=== PATIENT | female | born 1945 | race Caucasian/White ===

== ENCOUNTER 2020-03-01 08:01 | Day surgery (SDC) | payer MEDICARE, OTHER ==
[~2020-03-01] VITALS: Ht 175.3 cm; Wt 64.7 kg
[2020-03-01] VITALS (12 sets, daily range): BP systolic 124–164; BP diastolic 57–104
--- NOTE | 2020-03-01 08:20 | NUR ---
Pt ambulated independently on to unit & oriented to room, including fall prevention policy & call light use.
[2020-03-01] MEDS ORDERED: diphenhydrAMINE 25mg capsule PO PRN (08:30)
[2020-03-01] MEDS ORDERED: LORazepam 0.5 MG tablet PO PRN (08:30)
[2020-03-01] MEDS ORDERED: normal saline 1,000 ML IV SCH (08:30)
[2020-03-01] MEDS ORDERED: nitroGLYCERIN 0.4mg SUBLingual tab SL PRN (08:30)
[2020-03-01] MEDS ORDERED: ASPI-1265 PO (08:49)
[2020-03-01] MEDS ORDERED: FLUO40CA10 PO (08:49)
[2020-03-01] MEDS ORDERED: FLUT1BLS10 INH (08:49)
[2020-03-01] MEDS ORDERED: OLME20TA23 PO (08:49)
[2020-03-01] MEDS ORDERED: IBUP-1984 PO (08:49)
[2020-03-01 10:03] LABS: BASOPHILS # (AUTO) 0.1 X10'3 (0-0.2); BASOPHILS % (AUTO) 1.1 % (0-1); EOSINOPHILS # (AUTO) 0.1 X10'3 (0-0.9); EOSINOPHILS % (AUTO) 1.6 % (0-6); HEMATOCRIT 37.5 % (35.0-45.0); HEMOGLOBIN 12.3 g/dl (12.0-16.0); LYMPHOCYTES % (AUTO) 19.6 % (21-51); MEAN CORPUSCULAR HEMOGLOBIN 30.4 PG (27.0-31.0); MEAN CORPUSCULAR HGB CONC 32.8 g/dL (33.0-36.5); MEAN CORPUSCULAR VOLUME 92.9 FL (78-98); MEAN PLATELET VOLUME 7.6 FL (7.4-10.4); MONOCYTES # (AUTO) 0.4 X10'3 (0-0.9); MONOCYTES % (AUTO) 7.3 % (2-12); NEUTROPHILS # (AUTO) 3.7 X10'3 (1.8-7.7); NEUTROPHILS % (AUTO) 70.4 % (42-75); PLATELET COUNT 230 X10'3 (140-440); RED BLOOD COUNT 4.03 X10'6 (4.20-5.60); RED CELL DISTRIBUTION WIDTH 14.2 % (11.5-14.5); WHITE BLOOD COUNT 5.2 X10'3 (4.5-11.0)
[2020-03-01 10:13] LABS: ALBUMIN 3.3 G/DL (3.4-5.0); ANION GAP 4 (8-16); BLOOD UREA NITROGEN 23 MG/DL (7-18); BUN/CREATININE RATIO 29.9 (6.6-38.0); CALCIUM 8.7 MG/DL (8.5-10.1); CHLORIDE 110 MMOL/L (99-107); CREATININE 0.77 MG/DL (0.40-0.90); GLUCOSE 95 MG/DL (70-104); POTASSIUM 4.1 MMOL/L (3.5-5.1); SODIUM 145 MMOL/L (135-145); eGFR 73 ML/MIN
[2020-03-01] MEDS ORDERED: LIDOcaine 1% (10mg/ml)w/preservative injection 20ml MDV ONE (10:13)
[2020-03-01] MEDS ORDERED: midazolam 2 mg/2 ml injection ONE ×2 (10:13→10:50)
[2020-03-01] MEDS ORDERED: iohexol 350 MG/ML 50ML vial IV ONE (10:13)
[2020-03-01] MEDS ORDERED: iohexol 350MG/ML 100ml bottle IV ONE (10:13)
[2020-03-01] MEDS ORDERED: fentaNYL/PF 50MCG/1 ML 2ML syringe ONE (10:13)
[2020-03-01 10:17] LABS: PARTIAL THROMBOPLASTIN TIME 28 SECONDS (22-32)
--- NOTE | 2020-03-01 10:30 | NUR ---
Pt transported to helper animal laboratory via gurney, in no acute distress.
[2020-03-01] MEDS ORDERED: nitroGLYCERIN-Tridil 50MG/D5W 250 ML IV ONE (11:00)
[2020-03-01] MEDS ORDERED: hydrALAZINE 20mg/ml inj. IV ONE (11:04)
--- NOTE | 2020-03-01 11:25 | NUR ---
Pt returned to room via gurney from slabber, drowsy but easily arousable.
[2020-03-01] MEDS ORDERED: HYDROcodone/acetaminophen 5mg/325mg tablet PO PRN (11:35)
[2020-03-01] MEDS ORDERED: OXAZEpam 15mg capsule PO PRN (11:35)
[2020-03-01] MEDS ORDERED: HYDROcodone/acetaminophen 10/325mg tab PO PRN (11:35)
[2020-03-01] MEDS ORDERED: ondansetron/PF 4mg/2ml inj IV PRN (11:35)
[2020-03-01] MEDS ORDERED: proCHLORperazine 10 MG/2 ml inj IV PRN (11:35)
[2020-03-01] MEDS ORDERED: HYDROmorphone 1 mg/ml syringe IV PRN ×2 (11:35→13:05)
== END 2020-03-01 17:00 | disposition home or self-care (01) ==
LOC: SSTAY O 08:01 → MED 3N 08:07 → SSTAY O 17:00
PROVIDERS: ATTEND Internal Medicine Cardiovascular Disease
DX: R94.39 Abnormal result of other cardiovascular function study (principal); I25.119 Atherosclerotic heart disease of native coronary artery with unspecified angina pectoris; C50.912 Malignant neoplasm of unspecified site of left female breast; J44.9 Chronic obstructive pulmonary disease, unspecified; F32.9 Major depressive disorder, single episode, unspecified; F41.1 Generalized anxiety disorder; I10 Essential (primary) hypertension; M19.90 Unspecified osteoarthritis, unspecified site; Z98.51 Tubal ligation status; Z98.41 Cataract extraction status, right eye; Z98.42 Cataract extraction status, left eye; Z79.01 Long term (current) use of anticoagulants; Z79.82 Long term (current) use of aspirin; Z79.899 Other long term (current) drug therapy; F17.210 Nicotine dependence, cigarettes, uncomplicated
CPT/HCPCS: 36415; 71046; 80048; 85025; 85610; 85730; 93005; 93458; 99152; 99153; C1769; J0360; J1170; J1644; J2001; J2250; J3010; J7030; Q0163; Q9967; A4620; A6258; C1760; GO378; J3490